=== PATIENT | male | born 1980 | race Caucasian/White ===

== ENCOUNTER 2017-05-15 00:58 | Emergency (ER) | payer OTHER ==
[2017-05-15 01:27] VITALS: BP 124/74; PULSE 73; RESP 20; TEMP 98; O2SAT 100
--- NOTE | 2017-05-15 01:30 | C.PDOC ---
History Of Present Illness 36 y/o male c/o rectal pain for 3 days. Patient notes pain started after pushing after bowel movement. Reports history of hemorrhoids. Notes they normally resolve but this one taking longer to resolve. Denies any blood in stool, abdominal pain, nausea, vomiting, fever. Notes he has not used any OTC medications. Time Seen by Provider: 05/15/17 01:12 Chief Complaint (Nursing): GI Problem History Per: Patient History/Exam Limitations: no limitations Onset/Duration Of Symptoms: Days Current Symptoms Are (Timing): Still Present Quality Of Discomfort: "Pain" Associated Symptoms: denies: Fever, Nausea, Vomiting, Diarrhea, Urinary Symptoms Recent travel outside of the [place]: No Past Medical History Reviewed: Historical Data, Nursing Documentation, Vital Signs Vital Signs: Last Vital Signs Temp 98 F 05/15/17 01:18 Pulse 73 05/15/17 01:18 Resp 20 05/15/17 01:18 BP 124/74 05/15/17 01:18 Pulse Ox 100 05/15/17 02:42 - Medical History PMH: Sleep Apnea - [facility] Procedures ETHMOIDECTOMY (12/30/13) INTRANASAL ANTROTOMY (12/30/13) LAPAROSCOP APPENDECTOMY (12/15/14) OTHER COMPUTER ASSISTED SURGERY (12/30/13) OTHER DIAGNOSTIC PROC ON NASAL SINUS (12/30/13) SEPTOPLASTY NEC (12/30/13) Family History: States: Unknown Family Hx - Social History Hx Tobacco Use: No Hx Alcohol Use: No Hx Substance Use: No - Immunization History Hx Tetanus Toxoid Vaccination: No Hx Influenza Vaccination: No Hx Pneumococcal Vaccination: No Review Of Systems Except As Marked, All Systems Reviewed And Found Negative. Constitutional: Negative for: Fever, Chills Cardiovascular: Negative for: Chest Pain Respiratory: Negative for: Cough, Shortness of Breath Gastrointestinal: Positive for: Rectal Pain. Negative for: Nausea, Vomiting, Abdominal Pain, Constipation, Hematochezia Skin: Negative for: Rash Physical Exam - Physical Exam Appears: Non-toxic, No Acute Distress Skin: Warm, Dry Head: Atraumatic, Normacephalic Eye(s): bilateral: Normal Inspection, EOMI Nose: Normal Oral Mucosa: Moist Chest: Symmetrical Respiratory: No Accessory Muscle Use Gastrointestinal/Abdominal: Soft, No Tenderness, No Distention, No Guarding, No Rebound Rectal: No Blood Streaked Stool, Hemorrhoids (1 external, non-thrombosed, Agustín CP chaperoned exam) Back: Normal Inspection, No CVA Tenderness Extremity: Normal ROM, Capillary Refill (< 2 sec. ) Neurological/Psych: Oriented x3, Normal Speech, Normal Cognition ED Course And Treatment O2 Sat by Pulse Oximetry: 100 (RA) Pulse Ox Interpretation: Normal Progress Note: Treated with Colace and viscous lidocaine. On reassessment, patient is resting comfortably, and is in no acute distress. Patient instructed to follow up with clinic/PMD within 1-2 days. Disposition - Disposition Disposition: HOME/ ROUTINE Disposition Time: 01:27 Condition: STABLE Additional Instructions: Use warm sitz baths. Do not strain with bowel movements. Follow up with PMD in 1 -2 days. Return to ER if symptoms persist or worsen. Prescriptions: Docusate [Colace] 100 mg PO BID #14 cap Hard Fat/Phenylephrine [place] [Anusol Suppository] 1 sup RC BID #10 sup Hydrocortisone 2.5% (Rectal) [Anusol-HC] 1 applic TOP BID #1 tube Instructions: Hemorrhoids (ED) - Clinical Impression Clinical Impression: External hemorrhoid - PA / [employer] / Resident Statement MD/DO has reviewed & agrees with the documentation as recorded. - Scribe Statement The provider has reviewed the documentation as recorded by the Violaibradha Velez All medical record entries made by the Eben were at my direction and personally dictated by me. I have reviewed the chart and agree that the record accurately reflects my personal performance of the history, physical exam, medical decision making, and the department course for this patient. I have also personally directed, reviewed, and agree with the discharge instructions and disposition.
== END 2017-05-15 01:42 | disposition home or self-care (01) ==
LOC: C.ER 00:58
DX: K64.4 Residual hemorrhoidal skin tags (principal)